=== PATIENT | male | born 1975 | race Caucasian/White ===

== ENCOUNTER 2023-12-01 14:31 | Emergency (ER) | payer SELFPAY ==
[~2023-12-01] VITALS: Ht 182.8 cm; Wt 95.3 kg
[2023-12-01] MEDS ORDERED: MEDROL DOSEPAK4 MG PO (16:28)
[2023-12-01] MEDS ORDERED: NAPROSYN500 MG PO (16:28)
[2023-12-01] MEDS ORDERED: ZANAFLEX4 MG PO (16:28)
== END 2023-12-01 16:53 | disposition home or self-care (01) ==
LOC: ED 14:31
DX: S22.080A Wedge compression fracture of T11-T12 vertebra, initial encounter for closed fracture (principal); X50.0XXA Overexertion from strenuous movement or load, initial encounter; Y93.89 Activity, other specified; Y92.89 Other specified places as the place of occurrence of the external cause; Y99.0 Civilian activity done for income or pay